=== PATIENT | female | born 1995 | race African-American/Black ===

== ENCOUNTER 2020-01-13 06:00 | Inpatient (IN) ==
[2020-01-13] MEDS ORDERED: ONDANSETRON 4 MG/2 ML VIAL IV PRN (06:13)
[2020-01-13] MEDS ORDERED: MEPERIDINE 50 MG/1 ML VIAL IV PRN (06:13)
[2020-01-13] MEDS ORDERED: BUTORPHANOL 2 MG/ML VIAL IV PRN (06:13)
[2020-01-13 06:40] LABS: Basophils % 0.2 % (0.0-0.8); Eosinophils # 0.1 10*3/uL (0.0-0.87); Eosinophils % 1.1 % (0.00-10.9); Hematocrit 32.8 VOL% (35.7-47.0); Hemoglobin 10.7 GM/DL (12.0-16.0); Immature Granulocytes % 0.4 %; Immature Granulocytes Absolute 0.03 #; Lymphocytes # 1.9 10*3/uL (1.4-4.0); Lymphocytes % 23.4 % (21.3-54.2); Mean Corpuscular HGB Conc 32.6 GM/DL (32-36); Mean Corpuscular Volume 82.2 FL (87-102); Mean Platelet Volume 9.4 FL (9.6-12.0); Monocytes % 8.1 % (1.7-12.7); Neutrophils % 66.8 % (38.7-73.9); Platelet Count 289 T/CUMM (130-400); Red Blood Count 3.99 MC/CUMM (3.8-5.5); Red Cell Distribution Width 12.3 % (9.3-17.3); White Blood Count 8.2 T/CUMM (4-12)
[2020-01-13] MEDS: LACTATED RINGERS 1,000 ML IV SCH ×3 (06:55→18:42)
[2020-01-13 06:58] LABS: Albumin 2.4 G/DL (3.4-5.0); Bilirubin,Total 1.1 MG/DL (0.2-1.0); Calcium 8.5 MG/DL (8.5-10.1); Total Protein 6.5 G/DL (6.4-8.3)
[2020-01-13] MEDS ORDERED: OXYTOCIN/LR 20 UNIT/1,000 ML BAG IV SCH (07:00)
[2020-01-13] MEDS ORDERED: FAMOTIDINE 20 MG/2 ML VIAL IV ONE (15:24)
[2020-01-13] MEDS ORDERED: CITRIC ACID/SODIUM CITRATE 30 ML UDCUP PO ONE (15:24)
[2020-01-13] MEDS ORDERED: NALOXONE 0.4 MG/ML VIAL IV PRN (15:24)
[2020-01-13] MEDS ORDERED: diphenhydrAMINE 50 MG/1 ML VIAL IV PRN ×2 (15:24)
[2020-01-13] MEDS ORDERED: hydrOXYzine HCL 25 MG/1 ML VIAL IM PRN (15:24)
[2020-01-13] MEDS ORDERED: PROMETHAZINE 25 MG/1 ML VIAL IM ONE (15:24)
[2020-01-13] MEDS ORDERED: ePHEDrine 50 MG/ML AMP IV PRN (15:24)
[2020-01-13] MEDS ORDERED: fentaNYL 2 MCG/ROPIV 0.2% EPID 100 ML EPIDURAL SCH (15:30)
[2020-01-13] MEDS ORDERED: ONDANSETRON 4 MG/2 ML VIAL IV ONE (16:17)
[2020-01-13 17:53] LABS: Apearance,Urine CLEAR (Clear); Bilirubin,Urine Negative (Negative); Blood, Urine Negative (Negative); Glucose,Urine (UA) Negative (Negative); Ketones,Urine 5 mg/dL (Negative); Mucus,Urine Occasional /LPF (Occasional); Nitrite,Urine Negative (Negative); Protein,Urine Negative; Squamous Epithelial Cell,Urine Occasional /HPF (0-10); Urine Color Yellow (Yellow); Urine Specific Gravity 1.009 (1.001-1.035); Urine Urobilinogen < 2.0 EU/DL (0.2-1.0)
[2020-01-13] MEDS ORDERED: miSOPROStoL 200 MCG TABLET ONE (20:32)
[2020-01-13] MEDS ORDERED: CARBOPROST TROMETHAMINE 250 MCG/ML AMP IM ONE (20:32)
[2020-01-13] MEDS ORDERED: METHYLERGONOVINE 0.2 MG/1 ML AMP ONE (20:32)
[2020-01-13] MEDS ORDERED: oxyCODONE/ACETAMINOPHEN 5-325 MG TABLET PO PRN (22:15)
[2020-01-13] MEDS ORDERED: BISACODYL 10 MG SUPP RECTAL PRN (22:15)
[2020-01-13] MEDS ORDERED: ACETAMINOPHEN 325 MG TABLET PO PRN (22:15)
[2020-01-13] MEDS ORDERED: MEASLES/MUMPS/RUBELLA VACCINE 0.5 ML VIAL SUBCUT ONE (22:15)
[2020-01-13] MEDS ORDERED: BENZOCAINE 20%/MENTHOL 0.5% SPRAY 56 GM CAN TOP PRN (22:15)
[2020-01-13] MEDS ORDERED: WITCH HAZEL PADS 100/JAR TOP PRN (22:15)
[2020-01-13] MEDS ORDERED: HYDROCORTISONE 2.5% RECTAL CREAM 30 GM TUBE TOP PRN (22:15)
[2020-01-13] MEDS ORDERED: LANOLIN 50% CREAM 0.3 OZ TUBE TOP PRN (22:15)
[2020-01-14] MEDS ORDERED: OXYTOCIN/LR 20 UNIT/1,000 ML BAG IV ONE (00:25)
[2020-01-14] MEDS: IBUPROFEN 800 MG TABLET PO PRN ×2 (00:25→14:20)
[2020-01-14] MEDS: oxyCODONE/ACETAMINOPHEN 5-325 MG TABLET PO PRN ×2 (01:56→09:36)
[2020-01-14 07:07] LABS: Basophils % 0.2 % (0.0-0.8); Eosinophils # 0.1 10*3/uL (0.0-0.87); Eosinophils % 0.3 % (0.00-10.9); Hematocrit 28.6 VOL% (35.7-47.0); Hemoglobin 8.8 GM/DL (12.0-16.0); Immature Granulocytes % 0.6 %; Lymphocytes # 2.2 10*3/uL (1.4-4.0); Lymphocytes % 13.2 % (21.3-54.2); Mean Corpuscular HGB Conc 30.8 GM/DL (32-36); Mean Corpuscular Volume 85.4 FL (87-102); Mean Platelet Volume 9.6 FL (9.6-12.0); Neutrophils % 76.7 % (38.7-73.9); Platelet Count 265 T/CUMM (130-400); Red Blood Count 3.35 MC/CUMM (3.8-5.5); Red Cell Distribution Width 12.5 % (9.3-17.3); White Blood Count 16.9 T/CUMM (4-12)
[2020-01-14] MEDS: DOCUSATE SODIUM 100 MG CAPSULE PO SCH ×2 (09:33→21:20)
[2020-01-14] MEDS: FERROUS SULFATE 325 MG TABLET PO SCH ×2 (09:36→21:20)
[2020-01-15] MEDS: oxyCODONE/ACETAMINOPHEN 5-325 MG TABLET PO PRN (04:40)
[2020-01-15 07:33] VITALS: BP 141/85
[2020-01-15] MEDS: DOCUSATE SODIUM 100 MG CAPSULE PO SCH (08:47)
[2020-01-15] MEDS: FERROUS SULFATE 325 MG TABLET PO SCH (08:47)
== END 2020-01-15 11:40 | disposition home or self-care (01) | DRG 560 ==
LOC: N.LD 06:00 → N.OB 01-14 00:45
PROVIDERS: ADMIT Obstetrics & Gynecology; ATTEND Obstetrics & Gynecology